=== PATIENT | male | born 1950 ===

== ENCOUNTER 2021-01-04 20:11 | Emergency (ER) | payer SELFPAY ==
[~2021-01-04] VITALS: Ht 170.2 cm; Wt 77.1 kg
== END 2021-01-04 20:57 | disposition home or self-care (01) ==
LOC: ER 20:11
DX: F25.9 Schizoaffective disorder, unspecified (principal); Z53.21 Procedure and treatment not carried out due to patient leaving prior to being seen by health care provider
CPT/HCPCS: 99284